=== PATIENT | male | born 1955 | race Caucasian/White ===

== ENCOUNTER 2017-04-27 11:31 | Emergency (ER) | payer SELFPAY ==
--- NOTE | 2017-04-27 12:32 | DIAGNOSTIC IMAGING REPORT ---
PROCEDURE: XR ANKLE 3 OR 4 VIEWS - LEFT INDICATION: TRAUMA VS GOUT TECHNIQUE: Four views. COMPARISON: None. FINDINGS: No fracture or dislocation. There is a cortical irregularity involving the talus. IMPRESSION: 1. Degenerative changes. No fracture or dislocation.
--- NOTE | 2017-04-27 13:57 | ED NURSING NOTES ---
Clinical Report - Nurses [facility] [address] [place] [address] 04/27/2017 11:35 Patient: DAYANA CARSON TRIAGE Triage time 1152. Acuity: LEVEL 3. Chief Complaint: INJURY TO LEFT ANKLE. 11:52. --12:03 Lucia Rush R.N. 11:52 04/27/17. BP: 150/113. HR: 90. RR: 20. O2 saturation: 96%. Temp: 98.2 F. Pain level now: 02/22. --12:03 Lucia Rush R.N. Weight: 76.6 kg stated. Height/Length: 69 inches Per Patient. BMI: 25. --11:57 Lucia Rush R.N. Medications aleve 2 tabs 3-4 x /week last dose -2199. --11:59 Lucia Rush R.N. Allergies No Known Drug Allergy. --11:58 Lucia Rush R.N. History Arrived by private vehicle. Historian: patient. Accompanied by friend. No primary care physician. This occurred (Monday). Mechanism of injury: sustained a twisting injury. ( pt was angry and moving stuff out of shed, thinks he may have "tweaked" ankle--also has hx of gout so not sure if he is having a flair up). He has had tingling, and trouble walking. PAST MEDICAL HX: Tetanus status: up-to-date. ( gout). SOCIAL HX: Heavy tobacco smoker (cigarette)- 1 pack per day. Occasional alcohol use. History of drug use: marijuana. --12:03 Lucia Rush R.N. PROBLEMS: Hernia. Gout. Bursitis. --12:02 Lucia Rush R.N. ADDITIONAL SURGERIES: Hernia Repair. --12:02 Lucia Rush R.N. Interventions ID band on patient. To treatment room. --12:03 Lucia Rush R.N. PHYSICAL ASSESSMENT 11:52. Ambulatory to room. GENERAL / NEURO / PSYCH: Oriented X 4. Appears in pain. EXTREMITIES: Limited ROM present. Pain with weight bearing. He was unable to bear weight. Left ankle: tenderness and swelling. ( using crutches). SKIN: Skin is warm and dry. --12:05 Lucia Rush R.N. NURSING PROGRESS NOTES 11:52. Cold pack applied. Reassurance given. Patient identifiers checked. Call light placed in reach. Side rails up. Bed placed in lowest position. Patient ready for evaluation- chart flagged and notification provided. --12:03 Lucia Rush R.N. 12:25. ( port x-ray here to do ankle films). --16:40 Lucia Rush R.N. 12:30 ice pack refreshed. --16:41 Lucia Rush R.N. 13:55. 4 inch darrel bandage applied to left ankle by nurse; distal pulses intact, sensation intact and motor function within normal limits. --16:41 Lucia Rush R.N. DISPOSITION / DISCHARGE 14:05. Condition at departure: stable. No learning barriers present. Discharge instructions provided and reviewed with the patient. Reviewed medication(s) (motrin, vicodin). Reviewed crutch walking and splint care instructions (wear your old spilt or darrel wrap,). Written instructions provided in Moroccan. The patient was discharged home and accompanied by international marketing specialist. He left the Emergency Department on crutches and via private vehicle. Broom Worker driving. --16:39 Lucia Rush R.N. 14:00 04/27/17. BP: 140/98. BP. ED physician notified. HR: 88. RR: 18. O2 saturation: 97% on room air. Temp: deferred. Pain level now: 01/23. --16:39 Lucia Rush R.N. Locked/Released at 04/27/2017 16:42 by Lucia Rush R.N.
--- NOTE | 2017-04-27 13:57 | ED ORDER SUMMARY ---
..... Patient: DAYANA CARSON OrderSheet [facility] VisitID: [id number] [address] [place] [address] 61y, M Registration Date/Time: 04/27/2017 ORDER SHEET Weight: 76.6 kg (stated) Allergies: No Known Drug Allergy GENERAL ORDERS: Ankle 3 or 4V Left Urgent (12:03 04/27/2017 DDean R.N. per protocol) (Ack 12:04 PWeiler ER Tech1) (12:23 PWeiler ER Tech1) Ruben Wrap (13:49 04/27/2017 HBivens A.R.N.P.) (14:12 DDean R.N.) MEDICATION ORDERS: IV FLUIDS: ORDER SHEET NOTES: [Electronically signed by Yovana Cerda A.R.N.P. (15:46 04/27/2017)] [Electronically signed by Lucia Rush R.N. (16:42 04/27/2017)] [Electronically locked/signed by Lucia Rush R.N. (16:42 04/27/2017)]
--- NOTE | 2017-04-27 13:57 | ED NURSING NOTES ---
Clinical Report - Nurses [facility] [address] [place] [address] 04/27/2017 11:35 Patient: DAYANA CARSON TRIAGE Triage time 1152. Acuity: LEVEL 3. Chief Complaint: INJURY TO LEFT ANKLE. 11:52. --12:03 Lucia Rush R.N. 11:52 04/27/17. BP: 150/113. HR: 90. RR: 20. O2 saturation: 96%. Temp: 98.2 F. Pain level now: 02/22. --12:03 Lucia Rush R.N. Weight: 76.6 kg stated. Height/Length: 69 inches Per Patient. BMI: 25. --11:57 Lucia Rush R.N. Medications aleve 2 tabs 3-4 x /week last dose -2199. --11:59 Lucia Rush R.N. Allergies No Known Drug Allergy. --11:58 Lucia Rush R.N. History Arrived by private vehicle. Historian: patient. Accompanied by friend. No primary care physician. This occurred (Monday). Mechanism of injury: sustained a twisting injury. ( pt was angry and moving stuff out of shed, thinks he may have "tweaked" ankle--also has hx of gout so not sure if he is having a flair up). He has had tingling, and trouble walking. PAST MEDICAL HX: Tetanus status: up-to-date. ( gout). SOCIAL HX: Heavy tobacco smoker (cigarette)- 1 pack per day. Occasional alcohol use. History of drug use: marijuana. --12:03 Lucia Rush R.N. PROBLEMS: Hernia. Gout. Bursitis. --12:02 Lucia Rush R.N. ADDITIONAL SURGERIES: Hernia Repair. --12:02 Lucia Rush R.N. Interventions ID band on patient. To treatment room. --12:03 Lucia Rush R.N. PHYSICAL ASSESSMENT 11:52. Ambulatory to room. GENERAL / NEURO / PSYCH: Oriented X 4. Appears in pain. EXTREMITIES: Limited ROM present. Pain with weight bearing. He was unable to bear weight. Left ankle: tenderness and swelling. ( using crutches). SKIN: Skin is warm and dry. --12:05 Lucia Rush R.N. NURSING PROGRESS NOTES 11:52. Cold pack applied. Reassurance given. Patient identifiers checked. Call light placed in reach. Side rails up. Bed placed in lowest position. Patient ready for evaluation- chart flagged and notification provided. --12:03 Lucia Rush R.N. 12:25. ( port x-ray here to do ankle films). --16:40 Lucia Rush R.N. 12:30 ice pack refreshed. --16:41 Lucia Rush R.N. 13:55. 4 inch darrel bandage applied to left ankle by nurse; distal pulses intact, sensation intact and motor function within normal limits. --16:41 Lucia Rush R.N. DISPOSITION / DISCHARGE 14:05. Condition at departure: stable. No learning barriers present. Discharge instructions provided and reviewed with the patient. Reviewed medication(s) (motrin, vicodin). Reviewed crutch walking and splint care instructions (wear your old spilt or darrel wrap,). Written instructions provided in Indonesian. The patient was discharged home and accompanied by steel post installer. He left the Emergency Department on crutches and via private vehicle. Waiver Analyst driving. --16:39 Lucia Rush R.N. 14:00 04/27/17. BP: 140/98. BP. ED physician notified. HR: 88. RR: 18. O2 saturation: 97% on room air. Temp: deferred. Pain level now: 01/23. --16:39 Lucia Rush R.N. Locked/Released at 04/27/2017 16:42 by Lucia Rush R.N.
--- NOTE | 2017-04-27 13:57 | ED CLINICAL REPORT ---
Clinical Report - Physicians/Mid Levels [facility] [address] [place] [address] 04/27/2017 11:35 Patient: DAYANA CARSON Time Seen: 13:35; initial patient contact, initial documentation, patient care assumed. Arrived- By private vehicle. Historian- patient. HISTORY OF PRESENT ILLNESS Chief Complaint: Injury to the left ankle. The injury happened about 6 days ago. The patient sustained a twisting injury. Occurred at home. Patient is experiencing moderate pain. Patient denies injury to the head or neck. No other injury. REVIEW OF SYSTEMS The patient complains of pain on weight bearing. He has had swelling. No tingling, weakness, numbness, suspected foreign body or skin laceration. using old crutches he had. All systems otherwise negative, except as recorded above. PAST HISTORY See nurses notes. PROBLEMS: Hernia. Gout. Bursitis. --12:02 Lucia Rush R.N. ADDITIONAL SURGERIES: Hernia Repair. --12:02 Lucia Rush R.N. SOCIAL HISTORY Heavy tobacco smoker. Occasional alcohol use. History of drug use: marijuana. No recent travel. Is a local resident. FAMILY HISTORY No significant family medical history. ADDITIONAL NOTES The nursing notes have been reviewed with agreement regarding the chief complaint, HPI, ROS, PMH and patient medications and allergies. PHYSICAL EXAM Vital Signs: 04/27/2017 11:52 BP: 150/113. HR: 90. RR: 20. O2 saturation: 96%. Temp: 98.2 F. Pain level now: 5/10. Have been reviewed as abnormal and appear to be correct. Hypertensive. Heart rate normal. Respiratory rate normal. Temperature normal. Oxygen saturation normal. Appearance: Alert. Oriented X3. No acute distress. Head: Head atraumatic. Eyes: Pupils equal, round and reactive to light. Eyes normal inspection. Respiratory: No respiratory distress. Skin: Skin intact. Skin warm and dry. Extremities: Ankle injury present. Foot injury present. Left foot: mild tenderness, moderate swelling and small ecchymosis. Limited weight bearing secondary to pain. Neurovascular intact distally. (entire foot and lower ankle swollen, healing contusion, blue-green color to medial malleolus with mild tenderness). No erythema, laceration, abrasion, puncture wound or foreign body. No deformity. Foot and ankle exam otherwise negative. Extremities otherwise negative. Neuro, Vascular and Tendons: Vascular status intact. Sensation intact. Motor intact. Tendon function intact. Gait: Abnormal gait. Gait not tested due to pain. Neuro: Oriented X 3. No motor deficit. No sensory deficit. Note: isolated injury to ankle/foot. LABS, X-RAYS, AND EKG X-Rays: Left ankle negative. Lt Ankle X-ray: (IMPRESSION: 1. Degenerative changes. No fracture or dislocation. Electronically Final signed by:Hermilo Lyons MD 04/27/2017 12:33:41 PM). PROGRESS AND PROCEDURES Patient counseled in person regarding the patient's stable condition, test results and diagnosis. Differential Diagnosis: Other possible considerations: ankle fx vs sprain. Above considerations are based on history, physical exam and X-Ray data. Differential diagnosis was discussed with patient. Disposition: Discharged home in good and improved condition (13:57). Condition: good and stable. CLINICAL IMPRESSION Sprain of the tibiofibular ligament of the left ankle. INSTRUCTIONS Wear elastic wrap (Ruben wrap) as directed for one weeks until better. Elevate affected areas above chest level until better. You may walk and bear weight as tolerated. Do not work today. Warnings: GENERAL WARNINGS: Return or contact your physician immediately if your condition worsens or changes unexpectedly, if not improving as expected, or if other problems arise. Specifically return if problem worsens. Prescription Medications: [place] 5 mg / 325 mg tablets: take 1 orally every 6 hours as needed for pain. Dispense five (5). No refill. Motrin 800 mg tablets: take 1 tablet orally every 8 hours as needed for pain. Dispense thirty (30). No refills. Substitution is permissible. Follow-up: Follow up with your doctor in about one week even if well. Call for an appointment. Summary of care provided to patient. Screening today revealed the patient's blood pressure to be in the hypertensive range. The patient should follow up with a primary care provider for blood pressure management. Understanding of the discharge instructions verbalized by patient. (Electronically signed by Yovana Cerda A.R.N.P. 04/27/2017 15:46)
--- NOTE | 2017-04-27 13:57 | ED ORDER SUMMARY ---
..... Patient: DAYANA CARSON OrderSheet [facility] VisitID: [id number] [address] [place] [address] 61y, M Registration Date/Time: 04/27/2017 ORDER SHEET Weight: 76.6 kg (stated) Allergies: No Known Drug Allergy GENERAL ORDERS: Ankle 3 or 4V Left Urgent (12:03 04/27/2017 DDean R.N. per protocol) (Ack 12:04 PWeiler ER Tech1) (12:23 PWeiler ER Tech1) Ruben Wrap (13:49 04/27/2017 HBivens A.R.N.P.) (14:12 DDean R.N.) MEDICATION ORDERS: IV FLUIDS: ORDER SHEET NOTES: [Electronically signed by Yovana Cerda A.R.N.P. (15:46 04/27/2017)] [Electronically signed by Lucia Rush R.N. (16:42 04/27/2017)] [Electronically locked/signed by Lucia Rush R.N. (16:42 04/27/2017)]
--- NOTE | 2017-04-27 16:42 | ED MAR SUMMARY ---
..... Medication Administration Record [facility] [address], [place] [id number] Patient: DAYANA CARSON Visit ID: [id number] 61y, M Weight: 76.6 kg Height/Length: 69 in BMI: 25 ALLERGIES: No Known Drug Allergy
--- NOTE | 2017-04-27 16:42 | ED MED RECONCILIATION SUMMARY ---
Patient: DAYANA CARSON Medication Reconciliation Report [facility] VisitID: [id number] [address] [place] [address] 61y, M Registration Date/Time: 04/27/2017 Weight: 76.6 kg Height/Length: 69 in. BMI: 25.0 ALLERGIES: No Known Drug Allergy The patient's Home Medications are listed below: THE FOLLOWING MEDICATIONS NEED TO BE RECONCILED: aleve 2 tabs 3-4 x /week last dose -2199 The source(s) of the original Home Medication information: Not obtained. The following Medications were given to the patient in the Emergency Department: None. The following Medications were prescribed to the patient: [place] 5 mg / 325 mg tablets: take 1 orally every 6 hours as needed for pain. Dispense five (5). No refill. -- Yovana Cerda, Bertrand.R.N.P. Motrin 800 mg tablets: take 1 tablet orally every 8 hours as needed for pain. Dispense thirty (30). No refills. Substitution is permissible. -- Yovana Cerda A.R.N.P.
--- NOTE | 2017-04-27 16:42 | ED DISCHARGE INSTRUCTIONS ---
Patient: DAYANA CARSON General Instructions [facility] VisitID: [id number] [place] [address] 61y, M Registration Date/Time: 04/27/2017 Sprain of the tibiofibular ligament of the left ankle. INSTRUCTIONS Wear elastic wrap (Ruben wrap) as directed for one weeks until better. Elevate affected areas above chest level until better. You may walk and bear weight as tolerated. Do not work today. Warnings: GENERAL WARNINGS: Return or contact your physician immediately if your condition worsens or changes unexpectedly, if not improving as expected, or if other problems arise. Specifically return if problem worsens. Prescription Medications: [place] 5 mg / 325 mg tablets: take 1 orally every 6 hours as needed for pain. Dispense five (5). No refill. Motrin 800 mg tablets: take 1 tablet orally every 8 hours as needed for pain. Dispense thirty (30). No refills. Substitution is permissible. Follow-up: Follow up with your doctor in about one week even if well. Call for an appointment. Summary of care provided to patient. Screening today revealed the patient's blood pressure to be in the hypertensive range. The patient should follow up with a primary care provider for blood pressure management. Understanding of the discharge instructions verbalized by patient. ADDITIONAL INFORMATION Sprain, Ankle,With X-Ray A sprain is an injury to the ligaments or capsule that holds a joint together. There are no broken bones. Most sprains take from four to six weeks to heal. If the ligament is completely torn (severe sprain), it can take several months to recover. Mild to moderate sprains may be treated with an elastic wrap or an in-shoe splint to provide support and prevent re-injury. A mild sprain may not require any additional support. A severe sprain may require surgery to repair. Home care The following guidelines will help you care for your injury at home: Stay off the injured leg as much as possible until you can walk on it without pain. If you have a lot of pain with walking, crutches or a walker may be prescribed. (These can be rented or purchased at many pharmacies and surgical or orthopedic supply stores). Follow your doctor's advice regarding when to begin bearing weight on that leg. Keep your leg elevated to reduce pain and swelling. When sleeping, place a pillow under the injured leg. When sitting, support the injured leg so it is level with your waist. This is very important during the first 48 hours. Apply an ice pack (ice cubes in a plastic bag, wrapped in a towel) over the injured area for 20 minutes every 12 hours the first day. You can place the ice pack directly over the splint/cast. If you were given a boot, open it to apply the ice pack. Continue with ice packs 34 times a day for the next two days, then as needed for the relief of pain and swelling. You may use acetaminophen or ibuprofen to control pain, unless another pain medicine was prescribed. If you have chronic liver or kidney disease or ever had a stomach ulcer or GI bleeding, talk with your doctor before using these medicines. You may return to sports after healing, when you can run without pain. A sprained ankle is at risk for re-injury during the first six weeks. During that time, protect your ankle with an in-shoe splint that prevents tilting of your ankle from side to side. This is very important if you do active work or play sports during that time. Follow-up care Any X-rays you had today dont show any broken bones, breaks, or fractures. Sometimes fractures dont show up on the first X-ray. Bruises and sprains can sometimes hurt as much as a fracture. These injuries can take time to heal completely. If your symptoms dont improve or they get worse, talk with your doctor. You may need a repeat X-ray. When to seek medical care Get prompt medical attention if any of the following occur: The plaster cast or splint gets wet or soft The fiberglass cast or splint gets wet and does not dry for 24 hours Pain or swelling increases, or redness appears Toes become cold, blue, numb or tingly Re-injure your ankle Ruben Wrap An "Ruben Bandage" refers to any elastic bandage wrap (2-6" wide). This is used to apply support and compression to an arm or leg. It will help prevent or reduce swelling also. When applying the bandage, it should not be stretched too tightly. A tight Ruben Wrap will reduce circulation and cause tingling or numbness in the hand or foot. It may increase the pain under the bandage. If you get these symptoms, remove the wrap and rest the limb. Symptoms should go away within 1-2 hours. Once symptoms go away, reapply the bandage with less stretch. If symptoms do not go away after 1-2 hours with the bandage off, call your doctor or return to this facility promptly. Hydrocodone Bitartrate, Acetaminophen Oral tablet What is this medicine? ACETAMINOPHEN; HYDROCODONE (a set a BYRON ej fen; davy droe KOE done) is a pain reliever. It is used to treat mild to moderate pain. How should I use this medicine? Take this medicine by mouth. Swallow it with a full glass of water. Follow the directions on the prescription label. If the medicine upsets your stomach, take the medicine with food or milk. Do not take more than you are told to take. Talk to your group leader wafer polishing regarding the use of this medicine in children. This medicine is not approved for use in children. What side effects may I notice from receiving this medicine? Side effects that you should report to your doctor or health palliative care nurse practitioner as soon as possible: allergic reactions like skin rash, itching or hives, swelling of the face, lips, or tongue breathing problems confusion feeling faint or lightheaded, falls stomach pain yellowing of the eyes or skin Side effects that usually do not require medical attention (report to your doctor or health palliative care nurse practitioner if they continue or are bothersome): nausea, vomiting stomach upset What may interact with this medicine? alcohol antihistamines isoniazid medicines for depression, anxiety, or psychotic disturbances medicines for sleep muscle relaxants naltrexone narcotic medicines (opiates) for pain phenobarbital ritonavir tramadol What if I miss a dose? If you miss a dose, take it as soon as you can. If it is almost time for your next dose, take only that dose. Do not take double or extra doses. Where should I keep my medicine? Keep out of the reach of children. This medicine can be abused. Keep your medicine in a safe place to protect it from theft. Do not share this medicine with anyone. Selling or giving away this medicine is dangerous and against the law. Store at room temperature between 15 and 30 degrees C (59 and 86 degrees F). Protect from light. Keep container tightly closed. Throw away any unused medicine after the expiration date. Discard unused medicine and used packaging carefully. Pets and children can be harmed if they find used or lost packages. What should I tell my health care provider before I take this medicine? They need to know if you have any of these conditions: brain tumor Crohn's disease, inflammatory bowel disease, or ulcerative colitis drink more than 3 alcohol-containing drinks per day drug abuse or addiction head injury heart or circulation problems kidney disease or problems going to the bathroom liver disease lung disease, asthma, or breathing problems an unusual or allergic reaction to acetaminophen, hydrocodone, other opioid analgesics, other medicines, foods, dyes, or preservatives or trying to get breast-feeding What should I watch for while using this medicine? Tell your doctor or health palliative care nurse practitioner if your pain does not go away, if it gets worse, or if you have new or a different type of pain. You may develop tolerance to the medicine. Tolerance means that you will need a higher dose of the medicine for pain relief. Tolerance is normal and is expected if you take the medicine for a long time. Do not suddenly stop taking your medicine because you may develop a severe reaction. Your body becomes used to the medicine. This does NOT mean you are addicted. Addiction is a behavior related to getting and using a drug for a non-medical reason. If you have pain, you have a medical reason to take pain medicine. Your doctor will tell you how much medicine to take. If your doctor wants you to stop the medicine, the dose will be slowly lowered over time to avoid any side effects. You may get drowsy or dizzy when you first start taking the medicine or change doses. Do not drive, use machinery, or do anything that may be dangerous until you know how the medicine affects you. Stand or sit up slowly. There are different types of narcotic medicines (opiates) for pain. If you take more than one type at the same time, you may have more side effects. Give your health care provider a list of all medicines you use. Your doctor will tell you how much medicine to take. Do not take more medicine than directed. Call emergency for help if you have problems breathing. The medicine will cause constipation. Try to have a bowel movement at least every 2 to 3 days. If you do not have a bowel movement for 3 days, call your doctor or health palliative care nurse practitioner. Too much acetaminophen can be very dangerous. Do not take Tylenol (acetaminophen) or medicines that contain acetaminophen with this medicine. Many non-prescription medicines contain acetaminophen. Always read the labels carefully. Ibuprofen Oral tablet What is this medicine? IBUPROFEN (eye BYOO proe fen) is a non-steroidal anti-inflammatory drug (NSAID). It is used for dental pain, fever, headaches or migraines, osteoarthritis, rheumatoid arthritis, or painful monthly periods. It can also relieve minor aches and pains caused by a cold, flu, or sore throat. How should I use this medicine? Take this medicine by mouth with a glass of water. Follow the directions on the prescription label. Take this medicine with food if your stomach gets upset. Try to not lie down for at least 10 minutes after you take the medicine. Take your medicine at regular intervals. Do not take your medicine more often than directed. A special MedGuide will be given to you by the pharmacist with each prescription and refill. Be sure to read this information carefully each time. Talk to your group leader wafer polishing regarding the use of this medicine in children. Special care may be needed. What side effects may I notice from receiving this medicine? Side effects that you should report to your doctor or health palliative care nurse practitioner as soon as possible: allergic reactions like skin rash, itching or hives, swelling of the face, lips, or tongue black or bloody stools, blood in the urine or in vomit breathing problems changes in vision chest pain general ill feeling or flu-like symptoms nausea or vomiting redness, blistering, peeling or loosening of the skin, including inside the mouth slurred speech or weakness on one side of the body stomach pain unexplained weight gain or swelling unusually weak or tired yellowing of eyes or skin Side effects that usually do not require medical attention (report to your doctor or health palliative care nurse practitioner if they continue or are bothersome): constipation or diarrhea dizziness gas or heartburn stomach upset What may interact with this medicine? Do not take this medicine with any of the following medications: cidofovir ketorolac methotrexate pemetrexed This medicine may also interact with the following medications: alcohol aspirin diuretics lithium other drugs for inflammation like prednisone warfarin What if I miss a dose? If you miss a dose, take it as soon as you can. If it is almost time for your next dose, take only that dose. Do not take double or extra doses. Where should I keep my medicine? Keep out of the reach of children. Store at room temperature between 15 and 30 degrees C (59 and 86 degrees F). Keep container tightly closed. Throw away any unused medicine after the expiration date. What should I tell my health care provider before I take this medicine? They need to know if you have any of these conditions: asthma cigarette smoker drink more than 3 alcohol containing drinks a day heart disease or circulation problems such as heart failure or leg edema (fluid retention) high blood pressure kidney disease liver disease stomach bleeding or ulcers an unusual or allergic reaction to ibuprofen, aspirin, other NSAIDS, other medicines, foods, dyes, or preservatives or trying to get breast-feeding What should I watch for while using this medicine? Tell your doctor or healthcare professional if your symptoms do not start to get better or if they get worse. This medicine does not prevent heart attack or stroke. In fact, this medicine may increase the chance of a heart attack or stroke. The chance may increase with longer use of this medicine and in people who have heart disease. If you take aspirin to prevent heart attack or stroke, talk with your doctor or health palliative care nurse practitioner. Do not take other medicines that contain aspirin, ibuprofen, or naproxen with this medicine. Side effects such as stomach upset, nausea, or ulcers may be more likely to occur. Many medicines available without a prescription should not be taken with this medicine. This medicine can cause ulcers and bleeding in the stomach and intestines at any time during treatment. Ulcers and bleeding can happen without warning symptoms and can cause . To reduce your risk, do not smoke cigarettes or drink alcohol while you are taking this medicine. You may get drowsy or dizzy. Do not drive, use machinery, or do anything that needs mental alertness until you know how this medicine affects you. Do not stand or sit up quickly, especially if you are an older patient. This reduces the risk of dizzy or fainting spells. This medicine can cause you to bleed more easily. Try to avoid damage to your teeth and gums when you brush or floss your teeth. You have been given the following additional information: Sprain, Ankle, With X-Ray Ruben Wrap Hydrocodone Bitartrate, Acetaminophen Oral tablet Ibuprofen Oral tablet You may walk and bear weight as tolerated. Do not work today. (Electronically signed by Yovana Cerda A.R.N.P. 04/27/2017 15:46)
--- NOTE | 2017-04-27 16:42 | ED MED RECONCILIATION SUMMARY ---
Patient: ADYANA CARSON Medication Reconciliation Report [facility] VisitID: [id number] [address] [place] [address] 61y, M Registration Date/Time: 04/27/2017 Weight: 76.6 kg Height/Length: 69 in. BMI: 25.0 ALLERGIES: No Known Drug Allergy The patient's Home Medications are listed below: THE FOLLOWING MEDICATIONS NEED TO BE RECONCILED: aleve 2 tabs 3-4 x /week last dose -2199 The source(s) of the original Home Medication information: Not obtained. The following Medications were given to the patient in the Emergency Department: None. The following Medications were prescribed to the patient: [place] 5 mg / 325 mg tablets: take 1 orally every 6 hours as needed for pain. Dispense five (5). No refill. -- Yovana Cerda, Bertrand.R.N.P. Motrin 800 mg tablets: take 1 tablet orally every 8 hours as needed for pain. Dispense thirty (30). No refills. Substitution is permissible. -- Yovana Cerda A.R.N.P.
--- NOTE | 2017-04-27 16:42 | ED MAR SUMMARY ---
..... Medication Administration Record [facility] [address] [place], [place] [id number] Patient: DAYANA CARSON Visit ID: [id number] 61y, M Weight: 76.6 kg Height/Length: 69 in BMI: 25 ALLERGIES: No Known Drug Allergy
== END 2017-04-27 14:05 | disposition home or self-care (01) ==
LOC: ED SRH 11:31
DX: S93.432A Sprain of tibiofibular ligament of left ankle, initial encounter (principal); X50.1XXA Overexertion from prolonged static or awkward postures, initial encounter; Y93.89 Activity, other specified; Y99.9 Unspecified external cause status; Y92.009 Unspecified place in unspecified non-institutional (private) residence as the place of occurrence of the external cause; Z72.0 Tobacco use